=== PATIENT | male | born 1990 | race Caucasian/White ===

== ENCOUNTER 2023-11-01 17:44 | Emergency (ER) | payer MEDICAID ==
[2023-11-01] MEDS ORDERED: Sodium Chloride 0.9% 10 ML Syringe FLUSH PRN (18:01)
[2023-11-01 18:47] LABS: HEMATOCRIT 44.8 % (40.0-54.0); HEMOGLOBIN 15.5 g/dL (13.0-18.0); MEAN CORPUSCULAR HEMOGLOBIN 29.1 pg (27.0-32.0); MEAN CORPUSCULAR HGB CONC 34.6 g/dL (31.0-35.0); MEAN PLATELET VOLUME 12.1 fL (6.0-10.0); RED BLOOD CELL COUNT 5.32 M/uL (4.50-6.50); RED CELL DISTRIBUTION WIDTH 12.9 % (11.0-16.0); WHITE BLOOD CELL COUNT,WBC 7.7 K/uL (4.0-11.0)
[2023-11-01 18:51] LABS: APPEARANCE,URINE CLEAR (CLEAR); BILIRUBIN,URINE NEGATIVE (NEGATIVE); COLOR,URINE YELLOW; GLUCOSE,URINE NEGATIVE (NEGATIVE); KETONES,URINE NEGATIVE (NEGATIVE); LEUKOCYTE ESTERASE,URINE NEGATIVE (NEGATIVE); NITRITE,URINE NEGATIVE (NEGATIVE); OCCULT BLOOD,URINE NEGATIVE (NEGATIVE); PH,URINE 5.5 (5.0-8.0); PROTEIN,URINE NEGATIVE (NEGATIVE); UROBILINOGEN,URINE 0.2 E.U./dL (0.2-1.0)
[2023-11-01 18:56] LABS: AMPHETAMINES SCREEN, URINE NEGATIVE (NEGATIVE); BARBITURATE SCREEN,URINE NEGATIVE (NEGATIVE); BENZODIAZEPINES SCREEN,URINE NEGATIVE (NEGATIVE); METHADONE SCREEN, URINE NEGATIVE (NEGATIVE); METHAMPHETAMINES SCREEN, URINE NEGATIVE (NEGATIVE); OXYCODONE SCREEN,URINE NEGATIVE (NEGATIVE); THC SCREEN,URINE 50 NG/ML NEGATIVE (NEGATIVE)
[2023-11-01 19:09] LABS: A/G RATIO 1.2 (0.8-2.0); ALBUMIN 3.5 g/dL (3.4-5.0); ANION GAP 13.9 mmol/L (5.0-15.0); BILIRUBIN TOTAL 0.2 mg/dL (0.0-1.0); BUN/CREATININE RATIO 11.5 (6-25); CALCIUM 7.8 mg/dL (8.5-10.1); CARBON DIOXIDE,CO2 24.1 mmol/L (21.0-32.0); CREATININE 0.87 mg/dL (0.70-1.30); EST CRCL DRUG DOSING (CG) 139.03 mL/min; PROTEIN TOTAL,TP 6.5 g/dL (6.4-8.2)
[2023-11-01 19:19] LABS: TSH ULTRASENSITIVE 1.282 uIU/mL (0.358-3.740)
[2023-11-01 19:20] LABS: ETHANOL BLOOD MEDICAL < 3.0 mg/dL (<3.0)
[2023-11-01] MEDS: Diazepam 10 MG Tab PO ONE (23:54)
[2023-11-02] MEDS: Diazepam 10 MG Tab ONE (00:16)
[2023-11-02 08:27] VITALS: BP 144/89; PULSE 110
[2023-11-02] MEDS: DULoxetine 20 MG Cap PO ONE (10:48)
[2023-11-02] MEDS: Diazepam 5 MG Tab PO ONE (10:48)
== END 2023-11-02 10:05 ==
LOC: LB.ED 17:44
DX: F32.A Depression, unspecified (principal); R45.851 Suicidal ideations
CPT/HCPCS: 36415; 80053; 80307; 81003; 84443; 85027; 99285; A9270; A0425; A0428

== ENCOUNTER 2024-10-25 12:35 | Emergency (ER) | payer MEDICAID ==
[2024-10-25 13:07] VITALS: BP 135/102; PULSE 105
== END 2024-10-25 13:16 | disposition home or self-care (01) ==
LOC: LB.ED 12:35
DX: M43.6 Torticollis (principal)
CPT/HCPCS: 99283